=== PATIENT | male | born 1970 | race Caucasian/White ===

== ENCOUNTER → 2021-11-13 | Outpatient (CLI) | payer BC ==
--- NOTE | 2021-11-13 17:54 | Diagnostic Imaging Report ---
PROCEDURE: US Renal Bilateral. TECHNIQUE: Multiple real-time grayscale images were obtained over the kidneys in various projections bilaterally. INDICATION: Acute nontraumatic kidney injury. Right kidney measures 10.4 x 4.4 x 5.2 cm. Left kidney measures 11.3 x 6.8 x 4.6 cm. Cortical thickness and echogenicity is normal. No calculi are seen. There is no hydronephrosis. Partially filled urinary bladder is unremarkable. Right ureteral jet not visualized. Left ureteral jet was visualized. IMPRESSION: Unremarkable renal ultrasound. Dictated by: Dictated on workstation # [id number]
== END ==
LOC: RAD 14:46
PROVIDERS: ATTEND Internal Medicine Nephrology
DX: N17.9 Acute kidney failure, unspecified (principal); R03.0 Elevated blood-pressure reading, without diagnosis of hypertension; Z79.1 Long term (current) use of non-steroidal anti-inflammatories (NSAID)
CPT/HCPCS: 76770